=== PATIENT | male | born 1945 | race Caucasian/White ===

== ENCOUNTER 2016-10-11 10:04 | Day surgery (SDC) | payer MEDICARE, OTHER ==
--- NOTE | ~2016-10-11 | EGD ---
EGD REPORT [facility] [address] [id number] NAME: BENEDICT NÚÑEZ : [birth year] STATUS : REG [facility] [place], [place] PAT#: [id number] AGE: 70 ADM/REG DATE : 10/11/16 MR#: [id number] REPORT SERV DATE: 10/11/16 DICTATED BY: JASON NASH DATE: 10/11/16 REPORT STATUS : Draft [facility]ANS[facility]ED [facility]: [facility] DATE: 10/11/16 Endoscopy Center Patient Name: Benedict Núñez Date of : 1945 Attending MD: CAMI NASH MD Procedure Date No Time: 10/11/2016 Procedure: Upper GI endoscopy Indications: Abnormal CT of the GI tract showing thickening of the distal esophagus Referring MD: DARREN ALVAREZ JR. Medicines: See the Anesthesia note for documentation of the administered medications Complications: No immediate complications. Estimated blood loss: Minimal. Procedure: Pre-Anesthesia Assessment: - ASA Grade Assessment: III - A patient with severe systemic disease. - Prior to the procedure, a History and Physical was performed, and patient medications and allergies were reviewed. The patient's tolerance of previous anesthesia was also reviewed. The risks and benefits of the procedure and the sedation options and risks were discussed with the patient. All questions were answered, and informed consent was obtained. Prior Anticoagulants: The patient has taken no previous anticoagulant or antiplatelet agents. After reviewing the risks and benefits, the patient was deemed in satisfactory condition to undergo the procedure. After obtaining informed consent, the endoscope was passed under direct vision. Throughout the procedure, the patient's blood pressure, pulse, and oxygen saturations were monitored continuously. The GIF H190 [id number] was introduced through the mouth, and advanced to the second part of duodenum. The upper GI endoscopy was accomplished without difficulty. The patient tolerated the procedure well. Findings: The examined duodenum was normal. Biopsies were taken with a cold forceps for histology. Diffuse mild inflammation characterized by congestion (edema) and erythema was found in the gastric antrum. Biopsies were taken with a cold forceps for histology. The cardia and gastric fundus were normal on retroflexion. The gastroesophageal junction was normal. Biopsy with a cold forceps was EGD REPORT [address] [address] NAME: BENEDICT NÚÑEZ : [birth year] STATUS : REG [facility] [place], [place] PAT#: [id number] AGE: 70 ADM/REG DATE : 10/11/16 MR#: [id number] REPORT SERV DATE: 10/11/16 DICTATED BY: JASON NASH DATE: 10/11/16 REPORT STATUS : Draft TRANSCRIBED BY: [employer] DATE: 10/11/16 performed for histology. The examined esophagus was normal. Impression: - Normal examined duodenum. Biopsied. - Gastritis. Biopsied. - Normal gastroesophageal junction. Biopsied. - Normal esophagus. Recommendation: - Patient has a contact number available for emergencies. The signs and symptoms of potential delayed complications were discussed with the patient. Return to normal activities tomorrow. Written discharge instructions were provided to the patient. - Regular diet. - Discharge patient to home. - Continue present medications. - Await pathology results. Procedure Code(s): --- Professional --- 45765, Esophagogastroduodenoscopy, flexible, transoral; with biopsy, single or multiple Diagnosis Code(s): --- Professional --- K29.70, Gastritis, unspecified, without bleeding R93.3, Abnormal findings on diagnostic imaging of other parts of digestive tract R19.7, Diarrhea, unspecified CPT copyright 2013 [employer]. All rights reserved. The codes documented in this report are preliminary and upon dry dip worker review may be revised to meet current compliance requirements. CAMI NASH MD 10/11/2016 12:37 PM This report has been signed electronically. Number of Addenda: 0 Note Initiated On: 10/11/2016 12:24 PM Scope Withdrawal Time 0 hours 0 minutes 0 seconds [address] [place] [phone]
--- NOTE | ~2016-10-11 | EGD ---
EGD REPORT [facility] [address] [address] NAME: BENEDICT NÚÑEZ : [birth year] STATUS : REG [facility] [place] PAT#: [id number] AGE: 70 ADM/REG DATE : 10/11/16 MR#: [id number] REPORT SERV DATE: 10/11/16 DICTATED BY: JASON NASH DATE: 10/11/16 REPORT STATUS : Draft [facility]ANS[facility]ED BY: [facility] DATE: 10/11/16 Endoscopy Center Patient Name: Benedict Núñez Date of : 1945 Attending MD: CAMI NASH MD Procedure Date No Time: 10/11/2016 Procedure: Colonoscopy Indications: Chronic diarrhea, Abnormal CT of the GI tract Referring MD: ADRREN ALVAREZ JR., VIVI SHI MD Medicines: See the Anesthesia note for documentation of the administered medications Complications: No immediate complications. Estimated blood loss: None. Procedure: Pre-Anesthesia Assessment: - ASA Grade Assessment: III - A patient with severe systemic disease. - Prior to the procedure, a History and Physical was performed, and patient medications and allergies were reviewed. The patient's tolerance of previous anesthesia was also reviewed. The risks and benefits of the procedure and the sedation options and risks were discussed with the patient. All questions were answered, and informed consent was obtained. Prior Anticoagulants: The patient has taken no previous anticoagulant or antiplatelet agents. After reviewing the risks and benefits, the patient was deemed in satisfactory condition to undergo the procedure. After I obtained informed consent, the scope was passed under direct vision. Throughout the procedure, the patient's blood pressure, pulse, and oxygen saturations were monitored continuously. The PCF [id number] was introduced through the anus and advanced to 10 cm into the ileum. The ileocecal valve, appendiceal orifice, terminal ileum and rectum were photographed. The entire colon was examined. The colonoscopy was performed without difficulty. The patient tolerated the procedure well. The quality of the bowel preparation was adequate. Findings: The perianal and digital rectal examinations were normal. The terminal ileum appeared normal. Hypertrophied ileocecal valve, Biopsies were taken with a cold forceps for histology. Normal mucosa was found in the entire colon. Biopsies were taken with a cold forceps for histology. A few medium-mouthed diverticula were found in the sigmoid colon. EGD REPORT [address] [place]. [address] NAME: BENEDICT NÚÑEZ : [birth year] STATUS : REG [facility]#: [id number] AGE: 70 ADM/REG DATE : 10/11/16 MR#: [id number] REPORT SERV DATE: 10/11/16 DICTATED BY: JASON NASH DATE: 10/11/16 REPORT STATUS : Draft TRANSCRIBED BY: [facility] DATE: 10/11/16 Non-bleeding internal hemorrhoids were found during retroflexion and were Grade I (internal hemorrhoids that do not prolapse). There is no endoscopic evidence of mass or polyps in the ascending colon and in the cecum. Impression: - The examined portion of the ileum was normal. - Hypertrophied ileocecal valve - Normal mucosa in the entire examined colon. Biopsied. - Diverticulosis in the sigmoid colon. - Non-bleeding internal hemorrhoids. Recommendation: - Patient has a contact number available for emergencies. The signs and symptoms of potential delayed complications were discussed with the patient. Return to normal activities tomorrow. Written discharge instructions were provided to the patient. - High fiber diet indefinitely. - Discharge patient to home. - Continue present medications. - Await pathology results. Procedure Code(s): --- Professional --- 99842, Colonoscopy, flexible, proximal to splenic flexure; with biopsy, single or multiple Diagnosis Code(s): --- Professional --- K64.0, First degree hemorrhoids K57.30, Diverticulosis of large intestine without perforation or abscess without bleeding K52.9, Noninfective gastroenteritis and colitis, unspecified R93.3, Abnormal findings on diagnostic imaging of other parts of digestive tract CPT copyright 2013 [employer]. All rights reserved. The codes documented in this report are preliminary and upon optical brightener maker helper review may be revised to meet current compliance requirements. CAMI NASH MD 10/11/2016 12:59 PM This report has been signed electronically. Number of Addenda: 0 Note Initiated On: 10/11/2016 12:22 PM EGD REPORT [facility] [address] [address] NAME: BENEDICT NÚÑEZ : [birth year] STATUS : REG [facility] [place] PAT#: [id number] AGE: 70 ADM/REG DATE : 10/11/16 MR#: [id number] REPORT SERV DATE: 10/11/16 DICTATED BY: JASNO NASH DATE: 10/11/16 REPORT STATUS : Draft TRANSCRIBED BY: [employer] DATE: 10/11/16 Scope Withdrawal Time 0 hours 12 minutes 38 seconds [address] [address]
[~2016-10-11 10:04] MED LIST: AMARYL4 PO; ATRIPLA PO; EXELON3 PO; HUMALOGPEN SC; INSNOVR; INSNOVR SC; JANUVIA100 MG PO; LEVOTHYROXIN200 MCG PO; LIPITOR40 PO; MCZ25 PO; NAMENDA10 MG PO; PEP20 PO; PR25 PO; SEROQUEL1C PO; STOOL SOFTENER PO; ULTRAM50 PO; VITAMIN D2000 UNIT PO; WELCHOL3.75 GM PO; WELCHOL625 MG PO; ZANTAC 150 PO; ZANTAC150 MG PO; ZOCOR20 PO; ZOVI800 PO
== END 2016-10-11 23:59 | disposition home health service (06) ==
LOC: DMU 10:04
PROVIDERS: Internal Medicine Gastroenterology
PROC: 0DB68ZX Excision of Stomach, Via Natural or Artificial Opening Endoscopic, Diagnostic (ICD-10-PCS; 2016-10-11)
PROC: 0DBC8ZX Excision of Ileocecal Valve, Via Natural or Artificial Opening Endoscopic, Diagnostic (ICD-10-PCS; 2016-10-11)
PROC: 0DBE8ZX Excision of Large Intestine, Via Natural or Artificial Opening Endoscopic, Diagnostic (ICD-10-PCS; 2016-10-11)
PROC: 0DB98ZX Excision of Duodenum, Via Natural or Artificial Opening Endoscopic, Diagnostic (ICD-10-PCS; principal; 2016-10-11 11:30)
PROC: 0DB48ZX Excision of Esophagogastric Junction, Via Natural or Artificial Opening Endoscopic, Diagnostic (ICD-10-PCS; 2016-10-11 11:30)
DX: K64.0 First degree hemorrhoids (principal); K57.30 Diverticulosis of large intestine without perforation or abscess without bleeding; K29.50 Unspecified chronic gastritis without bleeding; I51.89 Other ill-defined heart diseases; K21.9 Gastro-esophageal reflux disease without esophagitis; E11.9 Type 2 diabetes mellitus without complications; E78.00 Pure hypercholesterolemia, unspecified; F41.9 Anxiety disorder, unspecified; F03.90 Unspecified dementia, unspecified severity, without behavioral disturbance, psychotic disturbance, mood disturbance, and anxiety; Z86.73 Personal history of transient ischemic attack (TIA), and cerebral infarction without residual deficits; Z21 Asymptomatic human immunodeficiency virus [HIV] infection status; Z98.890 Other specified postprocedural states
CPT/HCPCS: 82962; 88305; 88342